=== PATIENT | male | born 1945 ===

== ENCOUNTER 2025-08-10 13:11 | Outpatient (CLI) | payer MEDICARE ==
[2025-08-10 13:27] LABS: Glucose, Urine (Dipstick) Negative (Negative); Leukocyte Moderate (Negative); Protein, Urine (Dipstick) > or equal to 300 mg/dL (Neg-Trace); Specific Gravity, Urine 1.015 (1.005-1.030)
[2025-08-10 14:25] LABS: Bacteria/HPF 4+ HPF (None Seen); WBC/HPF Greater Than 50 HPF (0-3)
== END 2025-08-10 13:12 | disposition home or self-care (01) ==
LOC: MADLAB 13:11
PROVIDERS: ATTEND Registered Nurse
DX: N39.0 Urinary tract infection, site not specified (principal)
CPT/HCPCS: 81001; 87086